=== PATIENT | male | born 1985 | race Caucasian/White ===

== ENCOUNTER 2021-10-30 11:10 | Emergency (ER) | payer OTHER ==
[~2021-10-30] VITALS: Ht 177.8 cm; Wt 124.7 kg
[~2021-10-30 11:10] MED LIST: CRUTCH USE; HYDACE5 PO; IBUP600 PO
[2021-10-30] MEDS ORDERED: OCUFLOX5 M8 LEFTEAR (12:24)
== END 2021-10-30 12:37 | disposition home or self-care (01) ==
LOC: ER 11:10
DX: H92.22 Otorrhagia, left ear (principal); H92.02 Otalgia, left ear
CPT/HCPCS: 70450; 99283-25